=== PATIENT | female | born 1970 | race American Indian/Alaskan Native ===

== ENCOUNTER 2018-03-24 09:52 | Day surgery (SDC) | payer BC ==
[2018-03-24] MEDS ORDERED: Propofol 10 mg/ml Inj (20 ML) ONE (12:01)
[2018-03-24] MEDS ORDERED: Albuterol HFA 90 mcg/actuation (8 g) ONE (12:08)
[2018-03-24] MEDS ORDERED: ceFAZolin IV 2 gm in Dextrose 2 GM/50 ML BAG IVPB ONE (12:19)
[2018-03-24] MEDS: HYDROmorphone 0.5 mg/0.5 ml ISec IVP PRN ×2 (13:15→13:30)
[2018-03-24] MEDS ORDERED: HYDROmorphone 0.5 mg/0.5 ml ISec ONE (13:16)
[2018-03-24 16:01] VITALS: BP 117/73; PULSE 77; RESP 20; TEMP 97.8; O2SAT 97
--- NOTE | 2018-04-06 08:19 | OP ---
Copied To: Peyman Yeh MD Attending MD: Peyman Yeh MD PROCEDURE DATE: 03/24/2018 NATURE OF OPERATION: Dilatation and curettage and hysteroscopy. OPERATING SURGEON: Peyman Yeh MD MENTAL HEALTH ORDERLY: Dr. Michaels. ANESTHESIA: General. PREOPERATIVE DIAGNOSIS: Fibroid uterus with menometrorrhagia. POSTOPERATIVE DIAGNOSIS: Fibroid uterus with menometrorrhagia. FINDINGS: On pelvic examination under anesthesia, the external genitalia were normal. Vagina was parous. The cervix was slightly dilated and blood was oozing out. The uterus was abut 14 to 16 weeks' size with multiple fibroids, directed anteriorly and sounded to 3-1/2 inches in depth with irregular cavity with submucosal fibroid and moderate amount of endometrial tissue obtained. PROCEDURE: Under general anesthesia, the patient in dorsal lithotomy position, she was prepped and draped and catheterized in the usual sterile manner. A heavy weighted speculum was placed on the posterior vaginal vault and with the help of a Neumann speculum, the anterior lip of the cervix was grasped via tenaculum. The uterus was sounded and found to be anteverted to a depth of 3-1/2 inches. Serial dilatation of the cervix was done with a Hanks dilator up to #18. Hysteroscopic instrument was inserted, and with sorbitol, the uterine cavity was distended. The endometrial cavity was visualized and revealed a submucosal fibroid. The hysteroscope was removed, and further dilatation of cervix was done with a Hanks dilator up to #20. This was followed by sharp clockwise curettage of the endometrial cavity, which was productive of a moderate amount of endometrial tissue. The cavity was noted to be irregular. The patient tolerated the procedure well and was sent to the recovery room in satisfactory condition. Peyman Yeh MD
== END 2018-03-24 16:00 | disposition home or self-care (01) ==
LOC: C.SDS 09:52
PROVIDERS: ATTEND Obstetrics & Gynecology Gynecology
DX: N85.00 Endometrial hyperplasia, unspecified (principal); D25.1 Intramural leiomyoma of uterus; N92.0 Excessive and frequent menstruation with regular cycle
CPT/HCPCS: 58558; 88305; J0690; J1100; J1170; J2001; J2405; J2704; J3010